=== PATIENT | female | born 1975 | race Caucasian/White ===

== ENCOUNTER 2021-06-07 15:19 | Emergency (ER) | payer OTHER ==
[~2021-06-07] VITALS: Ht 160 cm; Wt 105.7 kg
[2021-06-07 15:25] VITALS: BP 143/79
--- NOTE | 2021-06-07 15:40 | NUR ---
PATIENT AMBULATED TO RESTROOM W/STEADY GAIT.
[2021-06-07 16:08] LABS: APPEARANCE,URINE CLEAR (CLEAR); BILIRUBIN,URINE NEGATIVE (NEGATIVE); BLOOD, URINE NEGATIVE (NEGATIVE); COLOR,URINE YELLOW (YELLOW); LEUKOCYTE ESTERASE ,URINE NEGATIVE (NEGATIVE); NITRITE, URINE NEGATIVE (NEGATIVE); PH,URINE 6.5 (5.0-9.0); UGLUCOSE NEGATIVE (NEGATIVE)
[2021-06-07 16:31] LABS: BASOPHILS # (AUTO) 0.1 K/uL (0.00-0.22); BASOPHILS % (AUTO) 0.9 % (0.0-2.0); EOSINOPHILS % (AUTO) 0.1 % (0.0-4.0); HEMATOCRIT 27.7 % (36-48); HEMOGLOBIN 9.1 g/dL (12.0-16.0); LYMPHOCYTES # (AUTO) 1.2 K/uL (2.5-16.5); LYMPHOCYTES % (AUTO) 18.1 % (20.5-51.1); MEAN CORPUSCULAR HEMOGLOBIN 29 pg (27-31); MEAN CORPUSCULAR HGB CONC 33 g/dL (33-37); MEAN CORPUSCULAR VOLUME 88.4 fL (80-94); MONOCYTES # (AUTO) 0.5 K/uL (0.8-1.0); MONOCYTES % (AUTO) 7.7 % (1.7-9.3); NEUTROPHILS # (AUTO) 5.1 K/uL (1.8-7.7); NEUTROPHILS % (AUTO) 73.2 % (42.2-75.2); PLATELET COUNT (AUTO) 333 K/uL (140-450); RED BLOOD CELL COUNT(AUTO) 3.14 MIL/uL (4.20-5.40); WHITE BLOOD COUNT (AUTO) 6.9 K/uL (4.8-10.8)
[2021-06-07] MEDS: MORPHINE SULFATE 4 MG/ML SYR IVP ONE ×2 (16:37→19:41)
[2021-06-07] MEDS: ONDANSETRON 4 MG/2 ML VIAL IVP ONE (16:37)
[2021-06-07 16:47] LABS: ALBUMIN 2.9 g/dL (3.4-5.0); ANION GAP 12.3 (8-16); CARBON DIOXIDE 25.3 mmol/L (21-32); CREATININE 0.4 mg/dL (0.6-1.3); POTASSIUM 3.6 mmol/L (3.5-5.1); TOTAL BILIRUBIN 0.6 mg/dL (0.0-1.0)
--- NOTE | 2021-06-07 18:38 | NUR ---
DR COLBERT AT BEDSIDE FOR ULTRASOUND IV
--- NOTE | 2021-06-07 19:00 | NUR ---
The patient's care was reviewed and supervised by Milka Small RN.
--- NOTE | 2021-06-07 19:24 | NUR ---
Pt report given to KIMBERLY ARANDA. Transfer of care at this time.
[2021-06-07] MEDS ORDERED: MORPHINE SULFATE 4 MG/ML SYR ONE (19:34)
--- NOTE | 2021-06-07 20:54 | NUR ---
PATIENT TO CT VIA W/C
--- NOTE | 2021-06-07 21:25 | NUR ---
PT STILL C/O 11/03 PAIN. SHE SAID SHE IS NOT RELIEVED WITH MORPHINE
--- NOTE | 2021-06-07 21:28 | NUR ---
PT SAYS SHES FEELING SOB. GAVE 4L VIA NASAL CANNULA
[2021-06-07] MEDS ORDERED: HYDROcodone/APAP 10/325 MG 1 TAB TAB PO PRN (22:30)
--- NOTE | 2021-06-07 23:44 | NUR ---
The patient's care was reviewed and supervised by Asha Beck RN, RN.
[2021-06-07 23:45] VITALS: BP 125/63
--- NOTE | 2021-06-07 23:45 | NUR ---
Patient discharged with v/s stable. Written and verbal after care instructions given and explained. Patient verbalized understanding. Ambulatory with steady gait. All questions addressed prior to discharge. Advised to follow up with PMD.
== END 2021-06-07 23:45 | disposition home or self-care (01) ==
LOC: MED 15:19
DX: R10.13 Epigastric pain (principal); J40 Bronchitis, not specified as acute or chronic; R11.0 Nausea; R06.02 Shortness of breath; I10 Essential (primary) hypertension; Z90.49 Acquired absence of other specified parts of digestive tract; Z98.84 Bariatric surgery status
CPT/HCPCS: 36415; 71045; 74176; 80053; 81003; 83690; 84484; 84703; 85025; 93005; 96374; 96375; 96376; 99285; J2270; J2405